=== PATIENT | male | born 2000 | race Caucasian/White ===

== ENCOUNTER 2024-12-12 12:06 | Emergency (ER) | payer OTHER ==
[2024-12-12 12:36] VITALS: BP 102/75; PULSE 71; RESP 20; TEMP 98.2; BMI 27.7
[2024-12-12] MEDS ORDERED: DIPHTH,PERTUSS(ACELL),TET 0.5 ML DISP.SYRIN IM ONE (13:46)
[2024-12-12] MEDS: DIPHTH,PERTUSS(ACELL),TET 0.5 ML DISP.SYRIN IM ONE (13:50)
== END 2024-12-12 13:52 | disposition home or self-care (01) ==
LOC: JERFT 12:06
PROC: 0HQFXZZ Repair Right Hand Skin, External Approach (ICD-10-PCS; principal; 2024-12-12)
DX: S61.212A Laceration without foreign body of right middle finger without damage to nail, initial encounter (principal); Z23 Encounter for immunization; W26.0XXA Contact with knife, initial encounter; Y99.0 Civilian activity done for income or pay
CPT/HCPCS: 90715; 99284-25